=== PATIENT | female | born 1940 | race Caucasian/White ===

== ENCOUNTER 2019-10-03 16:11 | Emergency (ER) | payer MEDICARE, MEDICAID, SELFPAY ==
[2019-10-03 16:12] VITALS: BP 149/88; PULSE 58; RESP 18; TEMP 37.2; O2SAT 96
--- NOTE | 2019-10-03 16:15 | ED.EAR ---
HPI - Ear Problem General Chief complaint: Ear Stated complaint: FB in right Ear Time Seen by Provider: 10/03/19 16:11 Source: patient Mode of arrival: EMS Limitations: no limitations History of Present Illness HPI Narrative: An 79 y/o female presents to the ED, via EMS, with c/o foreign body in her right ear. Pt states that she has part of a toothpick in her ear. Today the patient adds that she tried to get out the toothpick with tweezers, but was not able to get out the toothpick. She denies loss of hearing, fever, or ear pain. Pt has no other complaints at this time. MD Complaint: foreign body Location: right ear Duration: constant Relieving factors: nothing Associated symptoms ear: other (None) Treatment prior to arrival: other (Tweezers) Review of Systems Review of Systems: All systems reviewed & are unremarkable except as noted in HPI and below Constitutional: Constitutional: Denies fever(s) ENT: Denies otalgia, Denies hearing loss and Reports other (FB in ear) [facility] Past Medical History Medical History (Updated 10/03/19 @ 16:46 by Mia López) Medical history unknown Surgical History Surgical History (Updated 10/03/19 @ 16:46 by Mia López) Surgical history unknown Social History Social History (Updated 10/03/19 @ 16:46 by Mia López) Smoking status: Unknown if ever smoked Gender identity (if verbalized by the patient): Female Exam Narrative: Exam Narrative: Ear exam: There is a small amount of impacted cerumen in the right ear, a large amount of impacted cerumen in the left ear, and there is no foreign body in either ear. Const: General: no acute distress, well developed and other (Elderly) Nutritional Appearance: well nourished Orientation/consciousness: patient oriented x3 (alert) and Other orientation findings (Alert) Limitations: no limitations HENMT: Head: normocephalic and atraumatic Ears: external ears normal and other (Thorough otoscopic visualization of right ear does not reveal any FB) General nose exam: No nasal discharge present and no epistaxis Face and sinus: face symmetric Mouth: Yes lip normal, Yes tongue normal and Yes moist mucous membranes Throat: other (No exudate, no erythema) Eyes: Conjunctivae: conjunctivae normal Sclera: sclerae normal EOM: EOMs intact bilaterally Neck: Neck: full ROM and supple Thyroid: thyroid normal Resp: Effort & Inspection: normal respiratory effort Auscultation: other (breath sounds equal) Cardio: Heart sounds: no gallops GI: GI Palp: No abdominal tenderness and Yes Soft to palpation Auscultation: other (bowel sounds present) Back/Spine/Pelvis: Thoracic/Lumbar Spine: thoracic and lumbar spine normal to inspection Skin: General skin exam: normal color and no rashes or lesions noted Rashes: no rashes Neuro: General: patient oriented x3 (alert) and moves all extremities Cranial nerves: Yes facial symmetry Speech: normal speech Motor exam (neuro): Motor abnormalities not present Extrem: General: normal to inspection, full ROM and no pedal edema Psych: Affect: normal affect Course Vital Signs Vital signs: Vital Signs Temperature 37.2 C 10/03/19 16:12 Pulse Rate 58 L 10/03/19 16:12 Respiratory Rate 18 10/03/19 16:12 Blood Pressure 149/88 H 10/03/19 16:12 Pulse Oximetry 96 10/03/19 16:12 Temperature 37.2 C 10/03/19 16:12 Pulse Rate 58 L 10/03/19 16:12 Respiratory Rate 18 10/03/19 16:12 Blood Pressure 149/88 H 10/03/19 16:12 Pulse Oximetry 96 10/03/19 16:12 Medical Decision Making Vital Signs Vital Signs: Vital Signs Temperature 37.2 C 10/03/19 16:12 Pulse Rate 58 L 10/03/19 16:12 Respiratory Rate 18 10/03/19 16:12 Blood Pressure 149/88 H 10/03/19 16:12 Pulse Oximetry 96 10/03/19 16:12 Temperature 37.2 C 10/03/19 16:12 Pulse Rate 58 L 10/03/19 16:12 Respiratory Rate 18 10/03/19 16:12 Blood Pressure 149/88 H 10/03/19 16:12 Pulse Oximetry 96 10/03/19
--- NOTE | 2019-10-03 16:27 | PC.NURSE ---
Pt states she has qtip or tooth pick in R ear 2 days ago. Pt states she was unable to remove. Pt R ear has ear wax but no foreign object noted
== END 2019-10-03 19:30 | disposition home or self-care (01) ==
PROVIDERS: Emergency Provider Emergency Medicine
DX: H61.23 Impacted cerumen, bilateral (principal)
CPT/HCPCS: 99281